=== PATIENT | female | born 1950 | race Caucasian/White ===

== ENCOUNTER 2017-03-14 22:25 | Emergency (ER) | payer MEDICARE, OTHER ==
--- NOTE | 2017-03-14 22:33 | EDM.PDOC ---
ED HPI GENERAL MEDICAL PROBLEM - General Chief Complaint: Neurological Problem Stated Complaint: bad head ache Time Seen by Provider: 03/14/17 22:33 - History of Present Illness INITIAL COMMENTS - FREE TEXT/NARRATIVE: 66-year-old female presents emergency room with a severe headache. This started about an hour or hour and a half ago fairly sudden onset following the onset of the headache she developed some neck discomfort. She states that he headache is worse in the back of the head in the front of the head cannot really discern if it's worse on the right side of the left side. Right after she developed a headache she did throw up and she's had some nausea since then. The patient does not have a history of headaches. She's had no associated weakness or numbness with this headache no other unusual activities. Headache Pain Score (Numeric/FACES): 10 - Related Data Allergies Allergy/AdvReac Type Severity Reaction Status Date / Time latex Allergy Hives Verified 03/14/17 22:29 morphine Allergy Headache Verified 03/14/17 22:29 Home Meds: Home Meds DULoxetine [Cymbalta] 60 mg PO DAILY 03/14/17 [History] traMADol [Ultram] 50 mg PO DAILY PRN 03/14/17 [History] ED ROS GENERAL - Review of Systems Review Of Systems: See Below Constitutional: Denies: Fever, Chills HEENT: Reports: No Symptoms Respiratory: Reports: No Symptoms Cardiovascular: Reports: No Symptoms GI/Abdominal: Reports: Vomiting. Denies: Abdominal Pain, Constipation, Diarrhea : Reports: No Symptoms Musculoskeletal: Reports: Neck Pain Neurological: Reports: Headache. Denies: Trouble Speaking ED EXAM, NEURO - Physical Exam Exam: See Below Exam Limited By: No Limitations General Appearance: Alert, Moderate Distress (From the headache) Eye Exam: Bilateral Eye: EOMI, Normal Inspection, PERRL Ears: Normal External Exam, Normal Canal, Hearing Grossly Normal, Normal TMs Nose: Normal Inspection Throat/Mouth: Normal Inspection, Normal Lips, Normal Teeth, Normal Gums, Normal Oropharynx, Normal Voice, No Airway Compromise Head Exam: Atraumatic, Normocephalic Neck: Other (Chest some mild discomfort with range of motion). No: Lymphadenopathy (L), Lymphadenopathy (R), Tender Midline Respiratory/Chest: No Respiratory Distress, Lungs Clear, Normal Breath Sounds Cardiovascular: Regular Rate, Rhythm, No Edema, No Murmur GI/Abdominal: Normal Bowel Sounds, Soft, Non-Tender Neurological: Other (No evidence of muscle weakness. Cranial nerves II through XII grossly intact all muscle groups equal and appropriate bilaterally as tested with the patient lying in bed she can hold her legs up against resistance equally upper extremity muscle testing is normal cranial nerves II through XII grossly intact) EKG INTERPRETATION EKG Date: 03/14/17 Rhythm: NSR Venus: Normal P-Wave: Present QRS: Normal ST-T: Normal QT: Normal Comparison: NA - No Prior EKG Course - Vital Signs Last Recorded V/S: Last Vital Signs Temp 37.0 C 03/14/17 22:30 Pulse 88 03/15/17 00:01 Resp 22 H 03/15/17 00:01 BP 148/63 H 03/14/17 23:46 Pulse Ox 96 03/15/17 00:01 - Orders/Labs/Meds Orders: Active Orders 24 hr Category Date Time Status EKG Documentation Completion [RC] STAT Care 03/14/17 22:46 Active Head wo Cont [CT] Stat Exams 03/14/17 22:38 Taken Labs: Laboratory Tests 03/14/17 03/14/17 03/14/17 Range/Units 22:36 22:36 22:36 WBC 7.14 (3.98-10.04) K/mm3 RBC 4.90 (3.98-5.22) M/mm3 Hgb 13.5 (11.2-15.7) gm/L Hct 41.7 (34.1-44.9) % MCV 85.1 (79.4-94.8) fl MCH 27.6 (25.6-32.2) pg MCHC 32.4 (32.2-35.5) g/dl RDW Std Deviation 43.5 (36.4-46.3) fL Plt Count 269 (182-369) K/mm3 MPV 9.1 L (9.4-12.3) fl Neutrophils % (Manual) 68 H (40-60) % Band Neutrophils % 0 (0-10) % Lymphocytes % (Manual) 24 (20-40) % Atypical Lymphs % 0 % Monocytes % (Manual) 5 (2-10) % Eosinophils % (Manual) 3 (0.7-5.8) % Basophils % (Manual) 0 L (0.1-1.2) Platelet Estimate Adequate RBC Morph Comment Normal ESR (0-20) mm/hr PT 9.9 (8.0-13.0) SECONDS INR 0.91 APTT 24 (22-36) SECONDS Sodium 143 (136-145) mEq/L Potassium 3.8 (3.5-5.1) mEq/L Chloride 106 (98-107) mEq/L Carbon Dioxide 30 (21-32) mEq/L Anion Gap 10.8 (5-15) BUN 19 H (7-18) mg/dL Creatinine 0.8 (0.55-1.02) mg/dL Est Cr Clr Drug Dosing 62.24 mL/min Estimated GFR (MDRD) > 60 (>60) mL/min BUN/Creatinine Ratio 23.8 H (14-18) Glucose 109 (80-115) mg/dL Calcium 9.4 (8.5-10.1) mg/dL Total Bilirubin 0.2 (0.2-1.0) mg/dL AST 20 (15-37) U/L ALT 25 (14-59) U/L Alkaline Phosphatase 101 (46-116) U/L C-Reactive Protein < 0.2 (<1.0) mg/dL Total Protein 7.4 (6.4-8.2) g/dl Albumin 4.3 (3.4-5.0) g/dl Globulin 3.1 gm/dL Albumin/Globulin Ratio 1.4 (1-2) // Range/Units 22:36 WBC (3.98-10.04) K/mm3 RBC (3.98-5.22) M/mm3 Hgb (11.2-15.7) gm/L Hct (34.1-44.9) % MCV (79.4-94.8) fl MCH (25.6-32.2) pg MCHC (32.2-35.5) g/dl RDW Std Deviation (36.4-46.3) fL Plt Count (182-369) K/mm3 MPV (9.4-12.3) fl Neutrophils % (Manual) (40-60) % Band Neutrophils % (0-10) % Lymphocytes % (Manual) (20-40) % Atypical Lymphs % % Monocytes % (Manual) (2-10) % Eosinophils % (Manual) (0.7-5.8) % Basophils % (Manual) (0.1-1.2) Platelet Estimate RBC Morph Comment ESR 10 (0-20) mm/hr PT (8.0-13.0) SECONDS INR APTT (22-36) SECONDS Sodium (136-145) mEq/L Potassium (3.5-5.1) mEq/L Chloride (98-107) mEq/L Carbon Dioxide (21-32) mEq/L Anion Gap (5-15) BUN (7-18) mg/dL Creatinine (0.55-1.02) mg/dL Est Cr Clr Drug Dosing mL/min Estimated GFR (MDRD) (>60) mL/min BUN/Creatinine Ratio (14-18) Glucose (80-115) mg/dL Calcium (8.5-10.1) mg/dL Total Bilirubin (0.2-1.0) mg/dL AST (15-37) U/L ALT (14-59) U/L Alkaline Phosphatase (46-116) U/L C-Reactive Protein (<1.0) mg/dL Total Protein (6.4-8.2) g/dl Albumin (3.4-5.0) g/dl Globulin gm/dL Albumin/Globulin Ratio (1-2) Meds: Medications Discontinued Medications Generic Name Dose Route Start Last Admin Trade Name Freq PRN Reason Stop Dose Admin Hydromorphone HCl 0.25 mg 03/14/17 23:59 03/15/17 00:05 Dilaudid IVPUSH 03/15/17 00:00 0.25 mg NOW STA Administration Hydromorphone HCl Confirm 03/15/17 00:03 03/15/17 00:20 Dilaudid Administered 03/15/17 00:04 Not Given Dose 0.5 mg .ROUTE .STK-MED ONE Ondansetron HCl 4 mg 03/14/17 22:45 03/14/17 22:50 Zofran IVPUSH 03/14/17 22:46 4 mg ONETIME ONE Administration - Re-Assessments/Exams Free Text/Narrative Re-Assessment/Exam: 03/14/17 23:14 T showed a large subarachnoid hemorrhage slightly greater on the right a ruptured intracranial aneurysm is highly considered I was called from the radiologist at [facility]. Case discussed with the neurosurgeon at [facility] in [place] he recommended sending to [facility] or [place]. Call out to [facility] we are waiting for call back. 03/15/17 01:15 [facility] and male were both on accessible because the fog in the area and her flight service could not get him. We tried [facility] with no success and several campuses in the [place] area finally we got acceptance from Dr. Correia at the [facility] in [place] at around midnight. Patient was transferred with a systolic blood pressure in the 140s however she was uncomfortable when this was checked flight crew been instructed to keep her systolics between 120 and 140 keep the head of the bed slightly elevated approximately 30 they have blood pressure lowering medication if needed Patient had a Edwards of 15 upon arrival and a normal neurologic exam with the exception of a headache and some neck discomfort. Patient had a Edwards of 15 at discharge Departure - Departure Time of Disposition: 00:18 Disposition: DC/Tfer to Acute Hospital 02 Clinical Impression: Subarachnoid hemorrhage - Discharge Information Referrals: Radha Schumacher SAP BW BI DEVELOPER [Primary Care Provider] - Forms: ED Department Discharge - My Orders Last 24 Hours: My Active Orders 03/14/17 22:38 Head wo Cont [CT] Stat 03/14/17 22:46 EKG Documentation Completion [RC] STAT - Assessment/Plan Last 24 Hours: My Active Orders 03/14/17 22:38 Head wo Cont [CT] Stat 03/14/17 22:46 EKG Documentation Completion [RC] STAT
[2017-03-14] MEDS ORDERED: Ondansetron 4 MG/2 ML SDV IVPUSH ONE (22:45)
[2017-03-14] MEDS ORDERED: HYDROmorphone 0.5 MG/0.5 ML Syringe IVPUSH STA (23:59)
[2017-03-15] MEDS ORDERED: HYDROmorphone 0.5 MG/0.5 ML Syringe ONE (00:03)
[2017-03-15 00:34] VITALS: BP 148/63
--- NOTE | 2017-03-15 07:19 | CT ---
Head CT Technique: Multiple axial sections through the brain were obtained. Intravenous contrast was not utilized. Comparison: No previous intracranial imaging. Findings: Extensive subarachnoid blood is identified on both sides of the brain as well as blood filling the suprasellar cistern and perimesencephalic cisterns. Subarachnoid blood is seen to extend into the interhemispheric fissures. Ventricles are slightly dilated and difficult to exclude early ventricular obstruction. Blood is seen within the fourth ventricle. No abnormal parenchymal densities seen supratentorially. Symmetric low density findings noted within the white matter within both cerebellar hemispheres which are likely chronic. Bone window settings were reviewed which show no acute calvarial abnormality. Impression: 1. Extensive subarachnoid hemorrhage as described above. Early ventricular obstruction is possible. Subarachnoid hemorrhage most likely due to nonvisualized aneurysm rupture. Diagnostic code #5 Agree with preliminary report issued by [facility] (preliminary [facility] report dictated on 03/14/17, 11:52 PM Central Time)
== END 2017-03-15 00:15 ==
LOC: JD.ED 22:25
DX: I60.9 Nontraumatic subarachnoid hemorrhage, unspecified (principal); Z79.899 Other long term (current) drug therapy; Z88.5 Allergy status to narcotic agent; Z91.040 Latex allergy status
CPT/HCPCS: 36415; 70450; 80053; 85025; 85610; 85652; 85730; 86140; 93005; 96374; 96375; 99285; J1170; J2405

== ENCOUNTER 2020-03-29 18:02 | Emergency (ER) | payer MEDICARE, OTHER ==
[2020-03-29 18:14] VITALS: PULSE 72
[2020-03-29] MEDS ORDERED: Ketorolac 60 MG/2 ML SDV IM ONE (18:27)
[2020-03-29 18:40] VITALS: BP 127/84
--- NOTE | 2020-03-29 18:43 | EDM.PDOC ---
ED HPI GENERAL MEDICAL PROBLEM - General Chief Complaint: Lower Extremity Injury/Pain Stated Complaint: RT KNEE PAIN Time Seen by Provider: 03/29/20 18:18 Source of Information: Reports: Patient, RN Notes Reviewed History Limitations: Reports: No Limitations - History of Present Illness INITIAL COMMENTS - FREE TEXT/NARRATIVE: Patient is a 69-year-old female who presents to the ED for the evaluation of her right knee pain and swelling. Patient notes that her right knee has been bothering her for the past 3 days, but she notes that she is not been able to get much sleep due to the pain. It is progressively getting worse, and states now that it is very hard to bear any sort of weight on the knee itself at all. States she was camping, but did not injure herself or have any trauma to the knee. She did not fall. She has been using ice at home, she has tried Aleve, and tramadol, this does not seem to be helping much. The knee itself is swollen as compared to the left knee, slightly warmer to touch than the left knee as well. She is complaining of some mild numbness down the lateral side of her leg. And some pain that shoots up into her thigh. She is not complaining of any fevers or chills, cough/shortness of breath, nausea/vomiting/diarrhea. Patient states that the whole knee is kind of tender. But the back of the knee seems to be more tender, along with below the kneecap itself. She would rate her pain at a 10 out of 10. 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 History: Reports: Musculoskeletal History: Reports: Arthritis, Fibromyalgia Neurological History: Reports: Cerebral Aneurysms - Past Surgical History GI Surgical History: Reports: Cholecystectomy, Colonoscopy, ERCP Female Surgical History: Reports: Oophorectomy Neurological Surgical History: Reports: Intracranial Social & Family History - Tobacco Use Smoking Status *Q: Current Every Day Smoker Years of Tobacco use: 40 Packs/Tins Daily: 0.5 - Caffeine Use Caffeine Use: Reports: None - Recreational Drug Use Recreational Drug Use: No Review of Systems - Review of Systems Review Of Systems: Comprehensive ROS is negative, except as noted in HPI. ED EXAM, GENERAL - Physical Exam Exam: See Below Exam Limited By: No Limitations General Appearance: Alert, WD/WN, No Apparent Distress Respiratory/Chest: No Respiratory Distress, Lungs Clear, Normal Breath Sounds, No Accessory Muscle Use, Chest Non-Tender Cardiovascular: Normal Peripheral Pulses, Regular Rate, Rhythm, No Murmur Peripheral Pulses: 2+: Radial (L), Radial (R), Dorsalis Pedis (L), Dorsalis Pedis (R) Extremities: Normal Range of Motion, Normal Capillary Refill, Other (the right knee is visibly more swollen than the left knee.) Neurological: Alert, Oriented, Normal Cognition, No Motor/Sensory Deficits Psychiatric: Normal Affect, Normal Mood Skin Exam: Warm, Dry, Intact, Normal Color, No Rash Course - Vital Signs Last Recorded V/S: Last Vital Signs Temp 98.5 F 03/29/20 18:11 Pulse 72 03/29/20 18:11 Resp 16 03/29/20 18:11 BP 127/84 03/29/20 18:11 Pulse Ox 97 03/29/20 18:11 - Orders/Labs/Meds Orders: Active Orders 24 hr Category Date Time Status VL Duplex Lwr Ext Veins Ltd Rt [US] Stat Exams 03/29/20 18:26 Ordered Meds: Medications Discontinued Medications Generic Name Dose Route Start Last Admin Trade Name Freq PRN Reason Stop Dose Admin Ketorolac Tromethamine 60 mg 03/29/20 18:27 03/29/20 19:08 Toradol IM 03/29/20 18:28 60 mg ONETIME ONE Administration - Re-Assessments/Exams Free Text/Narrative Re-Assessment/Exam: 03/29/20 18:46 Patient presents to the ED for the evaluation of her right knee pain. Ultrasound will be obtained for evaluation of a possible blood clot versus cyst vs traumatic injury to the bursa. 03/29/20 20:52 Her son demonstrates no sign of a DVT or embolus within the right lower leg. She states she does have follow-up with Ortho on Tuesday, and will go over her knee pain with them. She is okay to go home but is requesting a refill of her tramadol as this seems to be giving her the most pain relief. I will do this, and she will follow-up with Ortho on Tuesday. Departure - Departure Time of Disposition: 20:52 Disposition: Home, Self-Care 01 Condition: Good Clinical Impression: Knee pain Qualifiers: Chronicity: acute Laterality: right Qualified Code(s): M25.561 - Pain in right knee - Discharge Information *PRESCRIPTION DRUG MONITORING PROGRAM REVIEWED*: Yes *COPY OF PRESCRIPTION DRUG MONITORING REPORT IN PATIENT JACOB: No Prescriptions: traMADol [Ultram] 50 mg PO Q6H PRN #28 tab PRN Reason: Pain Instructions: Acute Knee Pain, Adult, [id number] Referrals: Radha Schumacher CONSUMER LENDING MANAGER [Primary Care Provider] - Forms: ED Department Discharge Additional Instructions: You have been evaluated in the ED for your right knee pain. Your ultrasound demonstrated no embolus in your right leg or knee. Please use ice as tolerated to the affected area. You may elevate the affected area to provide further relief from swelling. You may take Tylenol 500 mg or ibuprofen 600mg q6 hrs for pain relief. Please do so until you have a tolerable level of pain with activity. Do not exceed 4000mg Tylenol, Do not exceed 3200mg ibuprofen in a 24 hour time period. You were given a prescription for a pain medication, tramadol, please take 1-2 tab every 6 hours as needed for pain not relieved by Tylenol or ibuprofen alone. These medications can be addictive, so please take as few as possible to achieve adequate pain control. These meds can also be quite constipating, recommend that you increase your oral fluid intake and take a stool softener like MiraLAX while taking these medications. Please keep your appointment with Ortho on Tuesday for further evaluation and management of your right knee pain. Please return to ED if your symptoms should change or worsen. Sepsis Event Note (ED) - Evaluation Sepsis Screening Result: No Definite Risk - Focused Exam Vital Signs: Vital Signs Temp Pulse Resp BP Pulse Ox 03/29/20 18:11 98.5 F 72 16 127/84 97 - My Orders Last 24 Hours: My Active Orders 03/29/20 18:26 VL Duplex Lwr Ext Veins Ltd Rt [US] Stat - Assessment/Plan Last 24 Hours: My Active Orders 03/29/20 18:26 VL Duplex Lwr Ext Veins Ltd Rt [US] Stat
--- NOTE | 2020-03-30 19:50 | US ---
Right lower extremity deep venous ultrasound: Duplex and color Doppler evaluation was obtained of the right common femoral, proximal greater saphenous, superficial femoral, popliteal, posterior tibial and peroneal veins. Left common femoral vein was also evaluated. Findings: Normal phasic flow, augmentation and compression is seen. Peroneal veins somewhat less than optimally seen. Impression: 1. No evidence of deep venous thrombosis within the right lower extremity or within the left common femoral vein. Diagnostic code #1 This report was dictated in [facility] I agree with preliminary report from [facility], finalized on 03/29/20, 8:35 PM Central Daylight Time
== END 2020-03-29 21:00 | disposition home or self-care (01) ==
LOC: JD.ED 18:02
DX: M25.561 Pain in right knee (principal); M79.89 Other specified soft tissue disorders; F17.210 Nicotine dependence, cigarettes, uncomplicated; Z91.040 Latex allergy status; Z88.5 Allergy status to narcotic agent; Z79.899 Other long term (current) drug therapy; Z90.49 Acquired absence of other specified parts of digestive tract
CPT/HCPCS: 93971; 96372; 99283; J1885

== ENCOUNTER 2021-05-16 12:53 | Emergency (ER) | payer MEDICARE, OTHER ==
[2021-05-16 13:16] VITALS: BP 117/83; PULSE 83
[2021-05-16] MEDS ORDERED: Ondansetron 4 MG/2 ML SDV IVPUSH ONE (13:26)
[2021-05-16] MEDS ORDERED: Sodium Chloride 0.9% 10 ML Syringe FLUSH PRN (13:26)
[2021-05-16] MEDS ORDERED: Sodium Chloride 0.9% 1,000 ML IV ONE (13:26)
[2021-05-16] MEDS ORDERED: HYDROmorphone 0.5 MG/0.5 ML Syringe IVPUSH ONE ×2 (13:28→15:14)
--- NOTE | 2021-05-16 14:54 | EDM.PDOC ---
ED HPI GENERAL MEDICAL PROBLEM - General Chief Complaint: Genitourinary Problem Stated Complaint: POSS KIDNEY STONE Time Seen by Provider: 05/16/21 13:04 Source of Information: Reports: Patient, Provider History Limitations: Reports: No Limitations - History of Present Illness INITIAL COMMENTS - FREE TEXT/NARRATIVE: 70-year-old female presents the emergency department with complaints of right flank pain radiating into her groin. Just prior to arrival in the emergency department patient was seen at [place] [facility] with similar complaints. I did receive report from , that the patient was seen 2 days ago at [facility] and diagnosed with a UTI. She was started on Cipro at that time. Patient did return to the walk-in clinic today with complaints of right flank pain and nausea. Urinalysis was completed which did show positive for urine ketones, moderate amount of urine blood, positive urine protein, positive nitrites, moderate leukocyte esterase, greater than 50 urine WBC, 3-5 urine RBC and few bacteria urine culture is pending. Patient denies any recent fever or chills, vomiting or diarrhea. She denies any cough or shortness of breath. She denies any urinary symptoms that include frequency, urgency, incontinence or burning. She states she did have a kidney stone approximately 20 years ago. Bilateral Posterior Flank Pain Score (Numeric/FACES): 9 - Related Data Allergies Allergy/AdvReac Type Severity Reaction Status Date / Time latex Allergy Hives Verified 05/16/21 13:18 morphine AdvReac Headache Verified 05/16/21 13:18 Home Meds: Home Meds DULoxetine [Cymbalta] 60 mg PO DAILY 03/14/17 [History] traMADol [Ultram] 50 mg PO Q6H PRN #28 tab 03/29/20 [Rx] Hydrocodone/Acetaminophen [HYDROcodone-Acetaminophen 5-325 MG] 1 each PO Q4H PRN #14 tab 05/16/21 [Rx] Ondansetron [Zofran ODT] 4 mg PO Q6H PRN #12 tab.dis 05/16/21 [Rx] Past Medical History Gastrointestinal History: Reports: Pancreatitis Genitourinary History: Reports: UTI, Recurrent [employer] History: Reports: Musculoskeletal History: Reports: Arthritis, Fibromyalgia Neurological History: Reports: Cerebral Aneurysms - Past Surgical History GI Surgical History: Reports: Cholecystectomy, Colonoscopy, ERCP Female Surgical History: Reports: Oophorectomy Neurological Surgical History: Reports: Intracranial Social & Family History - Tobacco Use Tobacco Use Status *Q: Current Every Day Tobacco User Years of Tobacco use: 50 Packs/Tins Daily: 0.7 Second Hand Smoke Exposure: Yes - Caffeine Use Caffeine Use: Reports: Soda Caffeine Use Comment: Diet coke once a day - Recreational Drug Use Recreational Drug Use: No ED ROS GENERAL - Review of Systems Review Of Systems: Comprehensive ROS is negative, except as noted in HPI. ED EXAM, RENAL/ - Physical Exam Exam: See Below Exam Limited By: No Limitations General Appearance: Alert, WD/WN, Mild Distress Ears: Normal External Exam, Hearing Grossly Normal Nose: Normal Inspection Throat/Mouth: Normal Inspection, Normal Lips, Normal Voice, No Airway Compromise Head: Atraumatic Neck: Normal Inspection, Supple Respiratory/Chest: No Respiratory Distress, Lungs Clear, Normal Breath Sounds, No Accessory Muscle Use, Chest Non-Tender Cardiovascular: Normal Peripheral Pulses, Regular Rate, Rhythm, No Edema, No Murmur GI/Abdominal: Normal Bowel Sounds, Soft, Non-Tender, No Distention (Female) Exam: Deferred Rectal (Female) Exam: Deferred Back Exam: Normal Inspection, CVA Tenderness (R) Extremities: Normal Inspection Neurological: Alert, Oriented, Normal Cognition Psychiatric: Normal Affect, Normal Mood Skin Exam: Warm, Dry, Intact, Normal Color, No Rash Lymphatic: No Adenopathy Course - Vital Signs Text/Narrative:: As stated above, patient presents with a recent diagnosis of UTI being treated with Cipro and new onset right flank pain with radiation to the right groin and nausea. Was seen at [place] [facility] this morning and sent to the emergency department for further evaluation. Upon exam, patient does have tenderness noted to right flank. She is afebrile and hemodynamically stable. Exam is otherwise unremarkable. Will order lab studies to include a CBC, CMP, magnesium and a C-reactive protein. Will obtain CT of the abdomen pelvis without contrast, stone protocol. Patient will also receive a liter of normal saline as well as Zofran and Dilaudid. Last Recorded V/S: Last Vital Signs Temp 97.6 F 05/16/21 13:05 Pulse 83 05/16/21 13:05 Resp 18 05/16/21 13:05 BP 117/83 05/16/21 13:05 Pulse Ox 97 05/16/21 13:05 - Orders/Labs/Meds Orders: Active Orders 24 hr Category Date Time Status Abdomen Pelvis wo Cont [CT] Stat Exams 05/16/21 13:25 Taken Sodium Chloride 0.9% [Saline Flush] Med 05/16/21 13:26 Active 10 ml FLUSH ASDIRECTED PRN Saline Lock Insert [OM.PC] Stat Oth 05/16/21 13:26 Ordered Medication Orders Sodium Chloride (Sodium Chloride 0.9% 10 Ml Syringe) 10 ml FLUSH ASDIRECTED PRN PRN Reason: Keep Vein Open Last Admin: 05/16/21 13:36 Dose: 10 ml Documented by: CHEMA Labs: Laboratory Tests 05/16/21 05/16/21 Range/Units 13:10 13:10 WBC 8.53 (3.98-10.04) K/mm3 RBC 4.99 (3.98-5.22) M/mm3 Hgb 13.8 (11.2-15.7) gm/dl Hct 42.3 (34.1-44.9) % MCV 84.8 (79.4-94.8) fl MCH 27.7 (25.6-32.2) pg MCHC 32.6 (32.2-35.5) g/dl RDW Std Deviation 45.6 (36.4-46.3) fL Plt Count 285 (182-369) K/mm3 MPV 9.7 (9.4-12.3) fl Neut % (Auto) 80.5 H (34.0-71.1) % Lymph % (Auto) 6.7 L (19.3-51.7) % Owen % (Auto) 12.3 (4.7-12.5) % Eos % (Auto) 0.2 L (0.7-5.8) Baso % (Auto) 0.2 (0.1-1.2) % Neut # (Auto) 6.86 H (1.56-6.13) K/mm3 Lymph # (Auto) 0.57 L (1.18-3.74) K/mm3 Owen # (Auto) 1.05 H (0.24-0.36) K/mm3 Eos # (Auto) 0.02 L (0.04-0.36) K/mm3 Baso # (Auto) 0.02 (0.01-0.08) K/mm3 Sodium 139 (136-145) mEq/L Potassium 3.7 (3.5-5.1) mEq/L Chloride 103 (98-107) mEq/L Carbon Dioxide 27 (21-32) mEq/L Anion Gap 12.7 (5-15) BUN 18 (7-18) mg/dL Creatinine 1.0 (0.55-1.02) mg/dL Est Cr Clr Drug Dosing 49.00 mL/min Estimated GFR (MDRD) 55 (>60) mL/min BUN/Creatinine Ratio 18.0 (14-18) Glucose 109 H (70-99) mg/dL Calcium 9.6 (8.5-10.1) mg/dL Magnesium 1.9 (1.8-2.4) mg/dL Total Bilirubin 0.5 (0.2-1.0) mg/dL AST 14 L (15-37) U/L ALT 18 (14-59) U/L Alkaline Phosphatase 104 (46-116) U/L C-Reactive Protein 9.8 H* (<1.0) mg/dL Total Protein 7.8 (6.4-8.2) g/dl Albumin 3.8 (3.4-5.0) g/dl Globulin 4.0 gm/dL Albumin/Globulin Ratio 1.0 (1-2) Meds: Medications Generic Name Dose Route Start Last Admin Trade Name Gage PRN Reason Stop Dose Admin Sodium Chloride 10 ml 05/16/21 13:26 05/16/21 13:36 Sodium Chloride 0.9% 10 Ml Syringe FLUSH 10 ml ASDIRECTED PRN Administration Keep Vein Open Discontinued Medications Generic Name Dose Route Start Last Admin Trade Name Gage PRN Reason Stop Dose Admin Hydromorphone HCl 0.25 mg 05/16/21 13:28 05/16/21 13:36 Hydromorphone 0.5 Mg/0.5 Ml Syringe IVPUSH 05/16/21 13:29 0.25 mg ONETIME ONE Administration Sodium Chloride 1,000 mls @ 999 mls/hr 05/16/21 13:26 05/16/21 13:36 Normal Saline IV 05/16/21 14:26 999 mls/hr ONETIME ONE Administration Ondansetron HCl 4 mg 05/16/21 13:26 05/16/21 13:36 Ondansetron 4 Mg/2 Ml Sdv IVPUSH 05/16/21 13:27 4 mg ONETIME ONE Administration - Re-Assessments/Exams Free Text/Narrative Re-Assessment/Exam: 05/16/21 14:52 Hematology reveals a WBC of 8.53, hemoglobin 13.8, hematocrit 42.3, platelet count 285 reveals a sodium of 139, potassium 3.7, anion gap 12.7, BUN 18, creatinine 1.0, GFR 55, glucose 109, magnesium 1.9, C-reactive protein 9.8 CT scan was reviewed by myself and Dr. Lassiter. Right kidney is edematous with a fair amount of stranding noted. There is a approximate 9.2 x 4.8 stone noted to the proximal ureter. Formal radiologist report is pending. 05/16/21 15:05 Discussed the results with the patient and told her that I would likely phone urology. She requests that I phoned [facility] urology in [place]. I did phone down and spoke to Dr. Carl Rivera who did take down her information. I notified him that I would be pushing her scans to [facility]. He also request that she call first thing Tuesday morning to set up an appointment. Patient will be discharged to home with prescription for hydrocodone. She will be instructed to continue taking her antibiotic. She will also be instructed to go to [facility] emergency department in [place] should she develop a fever or symptoms of infection. 05/16/21 15:[address] abdomen pelvis without contrast: 1. Moderate right hydronephrosis secondary to an obstructing 14 x 8 mm calculus in the proximal ureter. 2. Chronic and incidental findings as above. Departure - Departure Time of Disposition: 15:08 Disposition: Home, Self-Care 01 Condition: Good Clinical Impression: Right renal stone - Discharge Information Prescriptions: Hydrocodone/Acetaminophen [HYDROcodone-Acetaminophen 5-325 MG] 1 each PO Q4H PRN #14 tab PRN Reason: Pain (Moderate 4-6) Ondansetron [Zofran ODT] 4 mg PO Q6H PRN #12 tab.dis PRN Reason: Nausea/Vomiting Referrals: Radha Schumacher, TEXTILE FINISHER [Primary Care Provider] - Additional Instructions: You were seen in the emergency department with complaints of right flank pain. CT scan and lab studies were completed. Lab studies were essentially unremarkable. There does not appear to be any signs of infection at this time however you do have a very large kidney stone noted within the right ureter. Radiology measured the stone as 14 x 8 mm. You likely will not pass this stone on your own, so you will need to call down to [facility] urology clinic. I did speak with Dr. Carl Rivera, urologist on-call. I did give him your name and contact information however he also request that you call their office first thing Tuesday morning. The phone number for this is or [phone]. Dr. Rivera request that you ask to speak to Narendra, his penal officer to schedule the appointment. Should you develop fever or chills bef ore Tuesday, you need to immediately go to [facility] emergency department as this is deemed an emergency and you likely need immediate intervention of the kidney stone. I have sent a prescription to [facility] for a medication called hydrocodone. This is a strong narcotic medication used to treat moderate to severe pain. You can take 1 tab every 4 hours as needed for discomfort. You can also take ibuprofen 600 mg every 6-8 hours in addition to this medication. Be sure to take all these pain medications with a little food as they can cause some stomach upset. I have also sent a prescription for Zofran, nausea medication. You can take 1 tab, place it under your tongue and allow to dissolve and then wait approximately 30 minutes prior to eating or drinking anything. You may take this medication every 6 hours as needed for nausea or vomiting. Be sure to drink plenty of fluids and stay hydrated over the next couple of days. To new taking your antibiotic medication that was prescribed 2 days ago for urinary tract infection. Sepsis Event Note (ED) - Evaluation Sepsis Screening Result: No Definite Risk - Focused Exam Vital Signs: Vital Signs Temp Pulse Resp BP Pulse Ox 05/16/21 13:05 97.6 F 83 18 117/83 97 - My Orders Last 24 Hours: My Active Orders 05/16/21 13:25 Abdomen Pelvis wo Cont [CT] Stat 05/16/21 13:26 Sodium Chloride 0.9% [Saline Flush] 10 ml FLUSH ASDIRECTED PRN Saline Lock Insert [OM.PC] Stat - Assessment/Plan Last 24 Hours: My Active Orders 05/16/21 13:25 Abdomen Pelvis wo Cont [CT] Stat 05/16/21 13:26 Sodium Chloride 0.9% [Saline Flush] 10 ml FLUSH ASDIRECTED PRN Saline Lock Insert [OM.PC] Stat
--- NOTE | 2021-05-17 08:12 | CT ---
CT abdomen and pelvis Technique: Multiple axial sections were obtained from above the dome of the diaphragm inferiorly through the pubic symphysis. Intravenous contrast and oral contrast were not utilized. Study has been performed as a ureteral stone protocol. Reconstructed coronal and sagittal images were obtained. Comparison: Prior CT abdomen and pelvis exam of 09/12/11. Findings: Right kidney shows diffuse hydronephrosis. Proximal right ureter is dilated. Calcification is seen slightly past the UPJ measuring about 13 x 8 mm which is compatible with an obstructing calculus. Kidneys show no additional abnormal calcifications. No additional ureteral stone is seen. Visualized lung bases show mild right basilar atelectasis and scarring. Noncontrast appearance of the liver shows no focal abnormality. Spleen size is normal. Adrenal glands show no nodule. Pancreas shows a slightly dilated duct which most likely is residual from prior cholecystectomy. Abdominal aorta shows atherosclerotic calcification which continues into the iliac vessels. No aneurysm is seen. No retroperitoneal adenopathy or mesenteric abnormalities are seen. No pelvic mass or adenopathy is seen. Diverticuli are seen within the sigmoid colon. Mild increased stool is seen throughout the colon. Appendix is not definitely visualized. Degenerative change scattered within the spine. Bony structures are also osteopenic. Impression: 1. 13 x 8 mm obstructing stone within the proximal right ureter located slightly past the UPJ. 2. Other incidental findings as noted above. Diagnostic code #3 I agree with preliminary report from [facility], finalized on 05/16/21, 4:08 PM CDT, code 1
== END 2021-05-16 15:39 | disposition home or self-care (01) ==
LOC: JD.ED 12:53
DX: N13.2 Hydronephrosis with renal and ureteral calculous obstruction (principal); Z72.0 Tobacco use; Z88.5 Allergy status to narcotic agent; Z91.040 Latex allergy status
CPT/HCPCS: 36415; 74176; 80053; 83735; 85025; 86140; 96374; 96375; 96376; 99284; J1170; J2405; J7030

== ENCOUNTER 2021-06-12 14:20 | Emergency (ER) | payer MEDICARE, OTHER ==
--- NOTE | 2021-06-12 16:03 | EDM.PDOC ---
ED HPI GENERAL MEDICAL PROBLEM - General Chief Complaint: General Stated Complaint: DIZZY\\VOMITING\\CRAMPS Time Seen by Provider: 06/12/21 15:06 Source of Information: Reports: Patient History Limitations: Reports: No Limitations - History of Present Illness INITIAL COMMENTS - FREE TEXT/NARRATIVE: 71-year-old female presents the emergency department with complaints of 2-day history of nausea without vomiting, as well as feeling very lightheaded and off- balance. She states she has been needing help to walk around in her house for the past 2 days. She states that the room moves on her and gets fuzzy. She states she did take an Antivert meltaway earlier today and it did not help. She states she took Zofran for the nausea which also has not helped. She recently had lithotripsy with stent placement exactly 1 week ago. She states that stent was removed yesterday. Lower Abdomen Pain Score (Numeric/FACES): 5 - Related Data Allergies Allergy/AdvReac Type Severity Reaction Status Date / Time latex Allergy Hives Verified 06/13/21 01:15 morphine AdvReac Headache Verified 06/13/21 01:15 Home Meds: Home Meds DULoxetine [Cymbalta] 60 mg PO DAILY 03/14/17 [History] traMADol [Ultram] 50 mg PO Q6H PRN #28 tab 03/29/20 [Rx] Hydrocodone/Acetaminophen [HYDROcodone-Acetaminophen 5-325 MG] 1 each PO Q4H PRN #14 tab 05/16/21 [Rx] Ondansetron [Zofran ODT] 4 mg PO Q6H PRN #12 tab.dis 05/16/21 [Rx] Past Medical History - Past Health History Medical/Surgical History: Denies Medical/Surgical History Gastrointestinal History: Reports: Pancreatitis Genitourinary History: Reports: Renal Calculus, UTI, 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: Musculoskeletal History: Reports: Arthritis, Fibromyalgia Neurological History: Reports: Cerebral Aneurysms, Vertigo - Infectious Disease History Infectious Disease History: Reports: None - Past Surgical History GI Surgical History: Reports: Cholecystectomy, Colonoscopy, ERCP Female Surgical History: Reports: Oophorectomy Neurological Surgical History: Reports: Intracranial Social & Family History - Tobacco Use Tobacco Use Status *Q: Current Every Day Tobacco User Years of Tobacco use: 50 Packs/Tins Daily: 0.5 - Caffeine Use Caffeine Use: Reports: Soda, Tea Caffeine Use Comment: Diet coke once a day - Recreational Drug Use Recreational Drug Use: No ED ROS GENERAL - Review of Systems Review Of Systems: Comprehensive ROS is negative, except as noted in HPI. ED EXAM, GENERAL - Physical Exam Exam: See Below Exam Limited By: No Limitations General Appearance: Alert, WD/WN, Mild Distress Eye Exam: Bilateral Eye: EOMI, PERRL Ears: Normal External Exam, Normal Canal, Hearing Grossly Normal, Normal TMs Ear Exam: Bilateral Ear: Auricle Normal, Canal Normal, TM normal Nose: Normal Inspection Throat/Mouth: Normal Inspection, Normal Lips, Normal Voice, No Airway Compromise Head: Atraumatic, Normocephalic Neck: Normal Inspection, Supple Respiratory/Chest: No Respiratory Distress, Lungs Clear, Normal Breath Sounds, No Accessory Muscle Use, Chest Non-Tender Cardiovascular: Normal Peripheral Pulses, Regular Rate, Rhythm, No Edema, No Murmur Peripheral Pulses: 2+: Radial (L), Radial (R) GI/Abdominal: Normal Bowel Sounds, Soft, Non-Tender, No Distention (Female) Exam: Deferred Rectal (Female) Exam: Deferred Back Exam: Normal Inspection, Full Range of Motion Extremities: Normal Inspection, Normal Range of Motion, Non-Tender, No Pedal Edema, Normal Capillary Refill Neurological: Alert, Oriented, CN II-XII Intact, Normal Cognition, Abnormal Gait (Patient is unsteady needing to hold onto the mathew to ambulate) Psychiatric: Normal Affect, Normal Mood Skin Exam: Warm, Dry, Intact, Normal Color, No Rash Lymphatic: No Adenopathy #1 Interpretation EKG Date: 06/12/21 Time: 17:29 Rhythm: NSR Rate (Beats/Min): 70 [place]: Normal P-Wave: Present QRS: Normal ST-T: Normal QT: Normal EKG Interpretation Comments: Per Dr. Franco interpretation: Normal sinus rhythm at 70 bpm; normal axis and intervals; notched R waves in lead III; subtle ST depression inferior; nondiagnostic Course - Vital Signs Text/Narrative:: Upon exam, the patient is awake alert and oriented. She states she does have intermittent spells of "dizziness" while I am examining her sitting up in the bed. Full neuro exam is unremarkable. Patient does have increasing dizziness noted when laying flat in bed with her eyes closed. When turning her head from side to side she denies any dizziness however when head returns back to central positioning she notes increased dizziness. No nystagmus is appreciated. Will obtain CT scan of the head. Will also obtain lab studies to include a CBC, CMP, magnesium, C-reactive protein and a urinalysis with micro and culture if indicated. Last Recorded V/S: Last Vital Signs Temp 97.9 F 06/12/21 15:16 Pulse 82 06/12/21 18:00 Resp 15 06/12/21 18:00 BP 132/70 06/12/21 18:00 Pulse Ox 95 06/12/21 18:00 - Orders/Labs/Meds Labs: Laboratory Tests 06/12/21 06/12/21 06/12/21 Range/Units 15:38 15:58 17:00 WBC 9.30 (3.98-10.04) K/mm3 RBC 4.63 (3.98-5.22) M/mm3 Hgb 12.4 (11.2-15.7) gm/dl Hct 39.8 (34.1-44.9) % MCV 86.0 (79.4-94.8) fl MCH 26.8 (25.6-32.2) pg MCHC 31.2 L (32.2-35.5) g/dl RDW Std Deviation 44.2 (36.4-46.3) fL Plt Count 355 D (182-369) K/mm3 MPV 9.0 L (9.4-12.3) fl Neut % (Auto) 72.6 H (34.0-71.1) % Lymph % (Auto) 10.0 L (19.3-51.7) % [place] % (Auto) 8.8 (4.7-12.5) % Eos % (Auto) 7.3 H (0.7-5.8) Baso % (Auto) 0.8 (0.1-1.2) % Neut # (Auto) 6.75 H (1.56-6.13) K/mm3 Lymph # (Auto) 0.93 L (1.18-3.74) K/mm3 [place] # (Auto) 0.82 H (0.24-0.36) K/mm3 Eos # (Auto) 0.68 H (0.04-0.36) K/mm3 Baso # (Auto) 0.07 (0.01-0.08) K/mm3 Manual Slide Review Sodium 142 (136-145) mEq/L Potassium 3.9 (3.5-5.1) mEq/L Chloride 106 (98-107) mEq/L Carbon Dioxide 32 (21-32) mEq/L Anion Gap 7.9 (5-15) BUN 12 (7-18) mg/dL Creatinine 0.6 (0.55-1.02) mg/dL Est Cr Clr Drug Dosing TNP Estimated GFR (MDRD) > 60 (>60) mL/min BUN/Creatinine Ratio 20.0 H (14-18) Glucose 122 H (70-99) mg/dL Calcium 9.1 (8.5-10.1) mg/dL Magnesium 2.1 (1.8-2.4) mg/dL Total Bilirubin 0.1 L (0.2-1.0) mg/dL AST 17 (15-37) U/L ALT 23 (14-59) U/L Alkaline Phosphatase 105 (46-116) U/L C-Reactive Protein 0.3 (<1.0) mg/dL Total Protein 7.0 (6.4-8.2) g/dl Albumin 3.1 L (3.4-5.0) g/dl Globulin 3.9 gm/dL Albumin/Globulin Ratio 0.8 L (1-2) Urine Color Yellow (Yellow) Urine Appearance Clear (Clear) Urine pH 8.5 H (5.0-8.0) Ur Specific [place] 1.020 (1.005-1.030) Urine Protein Negative (Negative) Urine Glucose (UA) Negative (Negative) Urine Ketones Negative (Negative) Urine Occult Blood Negative (Negative) Urine Nitrite Negative (Negative) Urine Bilirubin Negative (Negative) Urine Urobilinogen 0.2 (0.2-1.0) Ur Leukocyte Esterase Negative (Negative) SARS-CoV-2 RNA (GUSTAVO) (NEGATIVE) 06/12/21 Range/Units 17:09 WBC (3.98-10.04) K/mm3 RBC (3.98-5.22) M/mm3 Hgb (11.2-15.7) gm/dl Hct (34.1-44.9) % MCV (79.4-94.8) fl MCH (25.6-32.2) pg MCHC (32.2-35.5) g/dl RDW Std Deviation (36.4-46.3) fL Plt Count (182-369) K/mm3 MPV (9.4-12.3) fl Neut % (Auto) (34.0-71.1) % Lymph % (Auto) (19.3-51.7) % [place] % (Auto) (4.7-12.5) % Eos % (Auto) (0.7-5.8) Baso % (Auto) (0.1-1.2) % Neut # (Auto) (1.56-6.13) K/mm3 Lymph # (Auto) (1.18-3.74) K/mm3 [place] # (Auto) (0.24-0.36) K/mm3 Eos # (Auto) (0.04-0.36) K/mm3 Baso # (Auto) (0.01-0.08) K/mm3 Manual Slide Review Sodium (136-145) mEq/L Potassium (3.5-5.1) mEq/L Chloride (98-107) mEq/L Carbon Dioxide (21-32) mEq/L Anion Gap (5-15) BUN (7-18) mg/dL Creatinine (0.55-1.02) mg/dL Est Cr Clr Drug Dosing Estimated GFR (MDRD) (>60) mL/min BUN/Creatinine Ratio (14-18) Glucose (70-99) mg/dL Calcium (8.5-10.1) mg/dL Magnesium (1.8-2.4) mg/dL Total Bilirubin (0.2-1.0) mg/dL AST (15-37) U/L ALT (14-59) U/L Alkaline Phosphatase (46-116) U/L C-Reactive Protein (<1.0) mg/dL Total Protein (6.4-8.2) g/dl Albumin (3.4-5.0) g/dl Globulin gm/dL Albumin/Globulin Ratio (1-2) Urine Color (Yellow) Urine Appearance (Clear) Urine pH (5.0-8.0) Ur Specific [place] (1.005-1.030) Urine Protein (Negative) Urine Glucose (UA) (Negative) Urine Ketones (Negative) Urine Occult Blood (Negative) Urine Nitrite (Negative) Urine Bilirubin (Negative) Urine Urobilinogen (0.2-1.0) Ur Leukocyte Esterase (Negative) SARS-CoV-2 RNA (GUSTAVO) Negative (NEGATIVE) Meds: Medications Discontinued Medications Generic Name Dose Route Start Last Admin Trade Name Gage PRN Reason Stop Dose Admin Aspirin 324 mg 06/12/21 17:07 06/12/21 17:26 Aspirin 81 Mg Tab.Chew PO 06/12/21 17:08 324 mg ONETIME ONE Administration Lorazepam 0.5 mg 06/12/21 17:23 06/12/21 17:37 Lorazepam 2 Mg/Ml Sdv IVPUSH 06/12/21 17:24 0.5 mg ONETIME ONE Administration Metoclopramide HCl 7.5 mg 06/12/21 17:23 06/12/21 17:36 Metoclopramide 10 Mg/2 Ml Sdv IVPUSH 06/12/21 17:24 7.5 mg ONETIME ONE Administration - Re-Assessments/Exams Free Text/Narrative Re-Assessment/Exam: 06/12/[address] of the head: Ventricles along with basal cisterns and sulci over the convexities are within normal limits for the patient's age. Prior head CT study shows a large subarachnoid hemorrhage. Current study shows no acute parenchymal hemorrhages. There is evidence of an old infarct within both cerebellar hemispheres as well as old infarct within the left posterior parietal region and within the anterior right parietal region. Mild diminished density is also noted within the periventricular white matter compatible with small vessel ischemic demyelination change. Several small lacunar infarcts are seen within the basal ganglia. Additional low-density is seen within the inferior mid left parietal region which could represent a more acute infarct. No midline shift or mass-effect is seen. Artifact is noted within the suprasellar cistern compatible with aneurysm surgery. Bone window settings were reviewed. Mucosal thickening is seen within the sphenoid sinuses and slightly within the ethmoid sinuses. Mastoid sinuses are clear. No acute calvarial abnormality is appreciated. Impression: 1. 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 2. Slight diminished density is also noted within the inferior left mid parietal region compatible with additional infarct which could be more acute. 3. Other senescent change as noted above. 4. Artifact is noted from prior aneurysm surgery. 5. Slight mucosal thickening within the paranasal sinuses which is most likely old I phoned [facility] in [place] and spoke with Dr. Pete, Neurologist administrative receptionist. He states that due to the fact that the patient's symptoms started 2 days ago she is no longer a candidate for TPA. Recommend CTA of the head and neck and for the patient to be hospitalized until Tuesday when an MRI can be completed. Also recommends giving 325 mg aspirin now followed by 81 mg daily. I have ordered the CTA of the head and neck. I have also ordered aspirin 325 mg to be given 1 time now. We will obtain the results of the CTA of the head and neck prior to speaking with our hospitalist. [id number]/12/[id number] Discussed the case with her hospitalist, Dr. Estrada, and he will not accept the patient into his services due to the fact that the patient is still having dizziness and she is a full code. 06/12/21 19:[address] of the neck: Both common carotid arteries are widely patent. Distal right internal carotid shows mild atheromatous irregularity without significant narrowing. Right external carotid artery is patent. Left internal carotid artery is a widely patent. Left external carotid artery is widely patent. Both vertebral arteries are widely patent into the basilar artery. Impression: 1. Mild atheromatous irregularity within the distal right internal carotid artery. 2. No significant stenosis is seen within the carotid arteries or vertebral arteries. CT of the brain radiologist impression: Both distal vertebral arteries are patent into the basilar artery. Basilar artery is patent into both posterior cerebral arteries. Distal internal carotid arteries are patent. Patency into both middle cerebral arteries is seen. Right A1 segment shows narrowing. Artifact is noted within the suprasellar cistern from previous surgery of aneurysm. Both internal carotid cerebral arteries are felt to be patent. No focal stenosis is seen. No additional aneurysm is identified. Impression: 1. Patency of both vertebral arteries, basilar artery and posterior cerebral arteries. 2. Narrowing within the right A1 segment with artifact from aneurysm surgery. 3. Both middle cerebral arteries, anterior cerebral arteries as well as distal internal carotid arteries are patent without focal stenosis. No new aneurysm is seen. 06/12/21 19:[address] [facility] and they state that due to the fact that I already spoke with the neurologist who does not recommend a higher level of care and that they only have a couple of beds left as well as numerous patients in the ER that they will not accept transfer this patient. 06/12/21 20:13 Phoned [facility] call and discussed the case with , hospitalist and Dr. Murguia neurologist. graciously agreed to accept care of this patient in transfer. Patient will need to be transferred by ambulance. Departure - Departure Time of Disposition: 01:24 Disposition: DC/Tfer to Acute Hospital 02 Condition: Good Clinical Impression: Dizziness - Discharge Information Referrals: Radha Schumacher ART MUSEUM AIDE [Primary Care Provider] - Forms: ED Department Discharge
--- NOTE | 2021-06-12 16:38 | CT ---
Head CT Technique: Multiple axial sections through the brain were obtained. Intravenous contrast was not utilized. Reconstructed coronal and sagittal images were obtained. Comparison: Prior head CT study of 03/14/17. Findings: Ventricles along with basal cisterns and sulci over the convexities are within normal limits for the patient's age. Prior head CT study showed a large subarachnoid hemorrhage. Current study shows no acute parenchymal hemorrhages. There is evidence of an old infarct within both cerebellar hemispheres as well as old infarct within the left posterior parietal region and within the anterior right parietal region. Mild diminished density is also noted within the periventricular white matter compatible with small vessel ischemic demyelination change. Several small lacunar infarcts are seen within the basal ganglia. Additional low density is seen within the inferior mid left parietal region which could represent a more acute infarct. No midline shift or mass-effect is seen. Artifact is noted within the suprasellar cistern compatible with aneurysm surgery. Bone window settings were reviewed. Mucosal thickening is seen within the sphenoid sinus and slightly within the ethmoid sinuses. Mastoid sinuses are clear. No acute calvarial abnormality is appreciated. Impression: 1. 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 2. Slight diminished density is also noted within the inferior left mid parietal region compatible with additional infarct which could be more acute. 3. Other senescent change as noted above. 4. Artifact is noted from prior aneurysm surgery. 5. Slight mucosal thickening within the paranasal sinuses which is most likely old. Diagnostic code #3
[2021-06-12] MEDS ORDERED: Aspirin 81 MG Tab.Chew PO ONE (17:07)
[2021-06-12] MEDS ORDERED: LORazepam 2 MG/ML SDV IVPUSH ONE (17:23)
[2021-06-12] MEDS ORDERED: Metoclopramide 10 MG/2 ML SDV IVPUSH ONE (17:23)
[2021-06-12 18:19] VITALS: BP 132/70; PULSE 82
--- NOTE | 2021-06-12 19:26 | CT ---
CT neck Technique: Multiple axial sections through the neck were obtained following intravenous administration of contrast during the arterial phase. Multiple MIP images were also obtained. Comparison: No prior neck vascular imaging is available. Findings: Both common carotid arteries are widely patent. Distal right internal carotid artery shows mild atheromatous irregularity without significant narrowing. Right external carotid artery is patent. Left internal carotid artery is widely patent. Left external carotid artery is widely patent. Both vertebral arteries are widely patent into the basilar artery. Impression: 1. Mild atheromatous irregularity within the distal right internal carotid artery. 2. No significant stenosis is seen within the carotid arteries or vertebral arteries. Diagnostic code #2
--- NOTE | 2021-06-12 19:35 | CT ---
CT of brain Technique: Multiple axial sections were obtained through the brain. Study was centered to the osage of [place]. Intravenous contrast was utilized. Comparison: No previous arterial imaging of the brain is available, previous noncontrast head CT performed eralier on the same day was utilized. Findings: Both distal vertebral arteries are patent into the basilar artery. Basilar artery is patent into both posterior cerebral arteries. Distal internal carotid arteries are patent. Patency into both middle cerebral arteries is seen. Right A1 segment shows narrowing. Artifact is noted within the suprasellar cistern from previous surgery of aneurysm. Both internal cerebral arteries are felt to be patent. No focal stenosis is seen. No additional aneurysm is identified. Impression: 1. Patency of both vertebral arteries, basilar artery and posterior cerebral arteries. 2. Narrowing within the right A1 segment with artifact from aneurysm surgery. 3. Both middle cerebral arteries, anterior cerebral arteries as well as distal internal carotid arteries are patent without focal stenosis. No new aneurysm is seen. Diagnostic code #2
== END 2021-06-13 00:50 ==
LOC: JD.ED 14:20
DX: R42 Dizziness and giddiness (principal); M19.90 Unspecified osteoarthritis, unspecified site; Z72.0 Tobacco use; Z91.040 Latex allergy status; Z88.5 Allergy status to narcotic agent; Z20.822 Contact with and (suspected) exposure to COVID-19
CPT/HCPCS: 36415; 70450; 70450-26; 70496; 70496-26; 70498; 70498-26; 80053; 81003; 83735; 85025; 86140; 93005; 96374; 96375; 99285-25; A9270-GY; J2060; J2765; U0002